=== PATIENT | male | born 1950 | race Caucasian/White ===

== ENCOUNTER 2018-07-27 15:58 | Emergency (ER) | payer MEDICARE, BC ==
[2018-07-27 16:29] LABS: BASOPHILS # (AUTO) 0.03 x10^3/uL (0-0.1); BASOPHILS % (AUTO) 0 % (0-1); EOSINOPHILS % (AUTO) 3 % (1-7); LYMPHOCYTES # (AUTO) 2.64 x10^3/uL (1-3.4); LYMPHOCYTES % (AUTO) 23 % (22-44); MD NO; MEAN CORPUSCULAR HEMOGLOBIN 30.1 pg (27.5-34.5); MEAN CORPUSCULAR HGB CONC 32.9 g/dL (33.2-36.2); MEAN CORPUSCULAR VOLUME 91.5 fL (81-97); MEAN PLATELET VOLUME 9.4 fL (7.4-10.4); MONOCYTES # (AUTO) 0.64 x10^3/uL (0.2-0.8); MONOCYTES % (AUTO) 6 % (2-9); NEUTROPHILS % (AUTO) 68 % (42-75); PLATELET COUNT 183 x10^3/uL (130-400); RED BLOOD COUNT 5.05 x10^6/uL (4.38-5.82); RED CELL DISTRIBUTION WIDTH 14.2 % (9.4-14.8)
[2018-07-27 16:38] LABS: ALANINE AMINOTRANSFERASE 32 U/L (12-78); ALBUMIN 3.9 g/dL (3.4-5.0); ANION GAP 7 mmol/L (5-15); CALCIUM 9.3 mg/dL (8.5-10.1); CHLORIDE 106 mmol/L (98-107); CREATININE 1.42 mg/dL (0.7-1.3)
[2018-07-27 16:40] LABS: ALKALINE PHOSPHATASE 82 U/L (45-117); BILIRUBIN,TOTAL 0.5 mg/dL (0.2-1.0); TOTAL PROTEIN 7.9 g/dL (6.4-8.2)
--- NOTE | 2018-07-27 17:29 | NUR ---
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 NAD NOTED.
[2018-07-27] MEDS ORDERED: OMNIPAQUE 350 MG/ML, 100ML BOTTLE ONE (17:43)
--- NOTE | 2018-07-27 17:57 | NUR ---
First contact with pt. Pt c/o intermittent black color on bilat toes and intermittent leg cramping in R LE since yesterday. CMS intact in bilat LEs. Pt states recently traveled from [place] on vacation. Pt denies pain at this time. Pt positioned for comfort in bed, declines warm blanket offered. Continuous oxygen and BP Monitors applied, all safety measures observed.
[2018-07-27] MEDS ORDERED: SODIUM CHLORIDE FLUSH 10ML SYR IVF ONE (18:00)
[2018-07-27 18:07] LABS: INTERNATIONAL NORMALIZED RATIO 1.09 (0.93-1.1); PROTHROMBIN TIME 11.4 Seconds (9.6-11.5)
[2018-07-27] MEDS ORDERED: METF500T17 PO (18:10)
[2018-07-27] MEDS ORDERED: INSU100I13 SQ (18:10)
[2018-07-27] MEDS ORDERED: EMPA10TA PO (18:10)
[2018-07-27] MEDS ORDERED: ROSU10TA2 PO (18:10)
[2018-07-27] MEDS ORDERED: AMLO-150 PO (18:10)
[2018-07-27] MEDS ORDERED: CHLO25TA PO (18:10)
[2018-07-27] MEDS ORDERED: ASPI-496 PO (18:10)
[2018-07-27] MEDS ORDERED: LOSA100T14 PO (18:10)
[2018-07-27] MEDS ORDERED: GABA100C PO (18:10)
[2018-07-27] MEDS ORDERED: TAMS-11 PO (18:10)
[2018-07-27] MEDS ORDERED: ALLO300T PO (18:10)
[2018-07-27] MEDS ORDERED: POTA10CA PO (18:10)
[2018-07-27] MEDS ORDERED: METO50TA82 PO (18:10)
--- NOTE | 2018-07-27 19:00 | NUR ---
Report to Angel VALLADARES.
--- NOTE | 2018-07-27 19:08 | NUR ---
Pt called this RN, states he checked his blood sugar and it was 75. Pt given juice, milk and crackers. Pt denies other needs.
[2018-07-27 19:09] VITALS: BP 140/76
--- NOTE | 2018-07-27 19:18 | NUR ---
Report from Josy hernandez Md at bedside for recheck.
== END 2018-07-27 20:03 | disposition home or self-care (01) ==
LOC: ED 17:39
DX: I75.89 Atheroembolism of other site (principal); I10 Essential (primary) hypertension; E11.9 Type 2 diabetes mellitus without complications
CPT/HCPCS: 36415; 73630; 75635; 80053; 85025; 85610; 93005; 99284; Q9967